=== PATIENT | male | born 1955 | race Caucasian/White ===

== ENCOUNTER 2016-07-10 08:43 | Observation (INO) | payer MEDICARE ==
--- NOTE | ~2016-07-10 | HP ---
History And Physical [place] [id number] [facility] [place]. [address] NAME: ABIOLA ELY : 57 STATUS : ADM Manisha PAT#: [id number] AGE: 60 ADM/REG DATE : 07/10/16 MR#: [id number] REPORT SERV DATE: 07/10/16 DICTATED BY: SIS HERNANDEZ DATE: 07/10/16 REPORT STATUS : Draft TRANSCRIBED BY: MODL DATE: 07/10/16 DATE OF ADMISSION: 07/10/2016 CHIEF COMPLAINT: Chest pain. HISTORY OF PRESENT ILLNESS: The patient is a 60-year-old male with known coronary artery disease with previous history of stents, myocardial infarction, ischemic cardiomyopathy, implantable defibrillator, and chronic atrial fibrillation. The patient reports that over the last six-days or a weeks, he has been having progressive dyspnea on exertion and chest pain. He reports pain which occurs with mild levels of exertion and is relieved with rest. He has associated diaphoresis, dyspnea, and nausea with his chest pain. As previously stated, it is reliably reproduced with exertion. He has had some intermittent resting chest pain as well. On the evening prior to admission, he had severe chest discomfort with diaphoresis, dyspnea, and nausea. This waxed and waned for several hours before reported in the emergency department. After treatment with nitrate and narcotic analgesics, he had repeat complete resolution of his chest pain and has had no recurrence since that time. PAST MEDICAL HISTORY: 1. Coronary artery disease with previous stents to LAD and left circumflex with acute myocardial infarction in 07/2012 secondary to stent thrombosis. 2. Chronic systolic congestive heart failure, ejection fraction 25% by echo in 12/2014. 3. Chronic atrial fibrillation. a. 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 b. Implantable defibrillator in situ. 4. Hypertension. 5. Diabetes mellitus. 6. Hyperlipidemia. 7. Obesity. 8. Obstructive sleep apnea. REVIEW OF SYSTEMS: Negative for all organ systems except per the history of present illness. SOCIAL HISTORY: The patient is currently undergoing divorce, from his , and currently lives alone. Denies tobacco use for the last seven to eight years. Prior to that time, smoking 35 years smoking, approximately one and a half packs of cigarettes per day. Denies illicit drug use. Reports one to two beers per day as his alcohol intake. He reports that he is medically disabled. FAMILY HISTORY: One brother with history of ablation for atrial fibrillation and previous coronary stents. ALLERGIES: ORENCIA (MALTOSE AND ABATACEPT, OR COMPONENTS OF ORENCIA) WITH ANAPHYLAXIS. MEDICATIONS: 1. Xanax 1 mg b.i.d., atorvastatin 80 mg at bedtime, azathioprine 50 mg b.i.d., Bumex 2 mg History And Physical [address] [address] NAME: ABIOLA ELY : 57 STATUS : ADM Manisha PAT#: [id number] AGE: 60 ADM/REG DATE : 07/10/16 MR#: [id number] REPORT SERV DATE: 07/10/16 DICTATED BY: SIS HERNANDEZ DATE: 07/10/16 REPORT STATUS : Draft TRANSCRIBED BY: MAURO DATE: 07/10/16 daily, carvedilol 12.5 mg b.i.d., citalopram 20 mg daily, Pradaxa 150 mg b.i.d. last dose the morning of 07/09/2016. 2. Digoxin 0.25 mg daily, hydroxychloroquine 400 mg daily, Levemir insulin 12 units subcu daily, losartan 25 mg daily, metolazone 2.5 mg daily, sublingual nitroglycerin 0.4 mg p.r.n., oxycodone/acetaminophen 10/325 mg one tablet q.4 hours p.r.n. pain, potassium chloride 20 mEq daily, prednisone 2 mg daily, spironolactone 25 mg daily. REVIEW OF SYSTEMS: Negative for all organ systems except per the history of present illness. PHYSICAL EXAMINATION: VITALS: Pulse 72 and regular, blood pressure ranging from 104/58 to 129/74, respirations 12 and unlabored, saturating 94% on 2 liters nasal cannula. GENERAL: Obese, middle-aged male, in no acute distress. HEENT: Normal. NECK: Supple, no JVD or bruit, normal carotid upstroke bilaterally, no thyromegaly. LUNGS: Faint crackles noted in the bases bilaterally. No wheezes, rales or rhonchi. No use of accessory muscles CARDIOVASCULAR: Irregularly regular rhythm, normal S1, S2, no thrill, no murmur, rubs or gallops, normal PMI. ABDOMEN: Bowel sounds positive, soft, nontender, and obese. No masses or aortic bruits. No hepatosplenomegaly or hepatojugular reflux. EXTREMITIES: No edema. Normal pulses. No clubbing or cyanosis. SKIN: Warm and dry, no significant rash. NEUROLOGIC: Alert and oriented x3. Appropriate mood. TELEMETRY: Atrial fibrillation with controlled ventricular rate. EKG: Sinus rhythm. Right bundle-branch block with evidence of previous anterior wall myocardial infarction. Left anterior fascicular block. Frequent PVCs versus paced beats. LABORATORY DATA: Sodium 139, potassium 3.2, chloride 98, BUN 13, creatinine 0.99, glomerular filtration rate 96 mL per minute, glucose 258, magnesium 1.8. WBC 8.9, hemoglobin 13.4, hematocrit 37.8, platelets 187,000. Troponin 0.03. Beta natriuretic peptide elevated 112. IMPRESSION: 1. Unstable angina, initial troponin marginally elevated. Abnormal baseline EKG. The patient's symptoms, he states they are quite similar to his previous myocardial infarction symptoms. The patient has been admitted for further observation and for treatment. He is currently anticoagulated. Serial cardiac enzymes have been ordered. We have recommended cardiac catheterization with intervention as indicated. There is no need for emergent catheterization at this time as the patient is asymptomatic. The risks, benefits, and alternatives of the procedure have been discussed with the patient. Complications including, but not limited to, , myocardial infarction, stroke, renal failure, life-threatening allergic reaction, life-threatening arrhythmia, life-threatening bleeding, and vascular or cardiac injury required emergent surgery have been discussed with the patient. The patient voices understanding of the History And Physical [address] [address] NAME: ABIOLA ELY : 57 STATUS : ADM Manisha PAT#: [id number] AGE: 60 ADM/REG DATE : 07/10/16 MR#: [id number] REPORT SERV DATE: 07/10/16 DICTATED BY: SIS HERNANDEZ DATE: 07/10/16 REPORT STATUS : Draft TRANSCRIBED BY: MODBrendon DATE: 07/10/16 potential risks and desires to proceed. 2. Chronic systolic congestive heart failure, ischemic cardiomyopathy, moderate dyspnea. Mildly elevated beta-natriuretic peptide, however, morbidly obese patient. This may be falsely depressed related to the same. In no respiratory distress at this time and no evidence of significant volume overload. We will continue current cardiac medications. 3. Diabetes mellitus, sliding scale insulin. 4. Permanent atrial fibrillation, rate controlled on current medication. 5. Chronic anticoagulation, Pradaxa has been discontinued and we will continue to be held at this time. PLAN: Plan for cardiac catheterization in the a.. CSL/MODL Yasir Hernandez M.D. / [id number] CC: Cristi Brian M.D.
[~2016-07-10 08:43] MED LIST: ASAB PO; ATEN25 PO; ATEN50 PO; BUM2 PO; C5 PO; CELEXA20 PO; COREG25 PO; COZ25 PO; CRESTOR10 PO; DIGITEK0.25 MG PO; DILT-XR120 MG PO; DSS PO; ENDOCET1 TA3 PO; HUMULIN R1 ML SC; IMU PO; INSPRA25 PO; JANTOVEN5 MG PO; JANUVIA100 MG PO; KLOR-CON M2020 MEQ PO; L20 PO; LAN25 PO; LEVEMFLXPN SC; LEVEMIR SC; LIPITOR80 MG PO; LORTAB10 PO; MSCONT15 PO; NEUR100 PO; NITROSTAT0.4 MG SL; NORCO1 TA1 PO; NOVOLOG SC; NOVOLOGMIX SC; P10 PO; P5 PO; PLAQ200B PO; PLAVIX PO; PRADAXA150 MG PO; PRIN10 PO; PRIN2.5 PO; PRIN5 PO; VIAGRA50 MG PO; X5 PO; XANAX1 MG PO; ZESTRIL2.5 MG PO
[2016-07-10 09:55] LABS: BASOPHILS 0.8 %; BASOPHILS ABSOLUTE 0.07 10/3/uL (0.0-0.16); EOSINOPHILS 3.2 %; EOSINOPHILS ABSOLUTE 0.28 10/3/uL (0.0-0.53); ER CBC TAT 0 Hrs 07 Mins; HEMOGLOBIN 13.4 g/dL (13.6-17.8); IMMATURE GRANULOCYTES 0.2 %; IMMATURE GRANULOCYTES ABSOLUTE 0.02 10/3/uL (0.0-0.11); LYMPHOCYTES 14.5 %; LYMPHOCYTES ABSOLUTE 1.28 10/3/uL (0.67-4.30); MEAN CORPUSCULAR HEMOGLOB 33.3 pg (26.0-34.0); MEAN PLATELET VOLUME 9.9 fL (9.2-13.0); MONOCYTES 6.1 %; MONOCYTES ABSOLUTE 0.54 10/3/uL (0.21-1.20); NEUTROPHILS 75.2 %; NEUTROPHILS ABSOLUTE 6.66 10/3/uL (2.02-8.40); PLATELET COUNT 187 10/3/uL (150-400); RBC DISTRIBUTION WIDTH 13.9 % (12.0-16.0); RED CELL COUNT 4.02 10/6/uL (4.7-6.1); WHITE BLOOD CELLS 8.9 10/3/uL (4.5-10.5)
[2016-07-10 09:58] LABS: HEMATOCRIT 37.8 % (40.0-51.0); MANUAL DIFF NO %; MEAN CORPUS HGB CONC 35.4 g/dL (32.0-36.0)
[2016-07-10 10:02] LABS: INTERNATIONAL NORMAL RATI 1.3 UNITS (-)
[2016-07-10 10:03] LABS: PARTIAL THROMBO TIME 36.5 SEC (22.5-37.2); PROTIME (NOT ORD) 16.3 SEC (12.0-14.5)
[2016-07-10 10:11] LABS: BUN (BLOOD UREA NITROGEN) 13 MG/DL (6-23); CALCIUM, SERUM 8.4 MG/DL (8.5-10.4); CHEST PAIN PROFILE TAT 0 Hrs 23 Mins; CHLORIDE, SERUM 98 MMOL/L (96-112); CREATININE 0.99 MG/DL (0.70-1.30); GFR AFRICAN AMERICAN 96 ML/MIN (>=60); GFR NON AFRICAN AMERICAN 83 ML/MIN (>=60); POTASSIUM, SERUM 3.2 MMOL/L (3.5-5.3); SODIUM, SERUM 139 MMOL/L (135-148); TROPONIN I 0.03 NG/ML (<0.05)
[2016-07-10 10:12] LABS: CO2 (CARBON DIOXIDE) 33 MMOL/L (24-34); GLUCOSE, SERUM 258 MG/DL (60-99)
[2016-07-10] MEDS ORDERED: COREG12 PO (10:35)
[2016-07-10] MEDS ORDERED: LIPITOR80 MG PO (10:36)
[2016-07-10] MEDS ORDERED: KLOR-CON M2020 MEQ PO (10:36)
[2016-07-10] MEDS ORDERED: LAN25 PO (10:36)
[2016-07-10] MEDS ORDERED: XANAX1 MG PO (10:37)
[2016-07-10] MEDS ORDERED: BUM2 PO (10:37)
[2016-07-10] MEDS ORDERED: CELEXA20 PO (10:37)
[2016-07-10] MEDS ORDERED: PRADAXA150 MG PO (10:38)
[2016-07-10] MEDS ORDERED: NITROSTAT0.4 MG SL (10:38)
[2016-07-10] MEDS ORDERED: LEVEMIR SC (10:41)
[2016-07-10] MEDS ORDERED: ENDOCET1 TA3 PO (10:42)
[2016-07-10] MEDS ORDERED: IMU PO (10:42)
[2016-07-10] MEDS ORDERED: COZ25 PO (10:43)
[2016-07-10] MEDS ORDERED: PLAQ200B PO (10:43)
[2016-07-10] MEDS ORDERED: P1 PO (10:43)
[2016-07-10] MEDS ORDERED: ZAROX2.5B PO (10:44)
[2016-07-10] MEDS ORDERED: SPIRO25 PO (10:44)
[2016-07-10 19:23] LABS: TROPONIN I 0.03 NG/ML (<0.05)
[2016-07-10 21:51] LABS: POTASSIUM, SERUM 3.5 MMOL/L (3.5-5.3)
[2016-07-11 05:58] LABS: INTERNATIONAL NORMAL RATI 1.2 UNITS (-); PROTIME (NOT ORD) 14.6 SEC (12.0-14.5)
[2016-07-11 06:00] LABS: BASOPHILS 0.8 %; BASOPHILS ABSOLUTE 0.07 10/3/uL (0.0-0.16); EOSINOPHILS 3.5 %; EOSINOPHILS ABSOLUTE 0.32 10/3/uL (0.0-0.53); HEMATOCRIT 38.3 % (40.0-51.0); HEMOGLOBIN 13.2 g/dL (13.6-17.8); IMMATURE GRANULOCYTES 0.2 %; IMMATURE GRANULOCYTES ABSOLUTE 0.02 10/3/uL (0.0-0.11); LYMPHOCYTES 21.9 %; LYMPHOCYTES ABSOLUTE 2.02 10/3/uL (0.67-4.30); MANUAL DIFF NO %; MEAN CORPUS HGB CONC 34.5 g/dL (32.0-36.0); MEAN CORPUSCULAR HEMOGLOB 32.4 pg (26.0-34.0); MEAN CORPUSCULAR VOLUME 94.1 fL (80-100); MONOCYTES 7.4 %; MONOCYTES ABSOLUTE 0.68 10/3/uL (0.21-1.20); NEUTROPHILS 66.2 %; PLATELET COUNT 200 10/3/uL (150-400); RED CELL COUNT 4.07 10/6/uL (4.7-6.1); WHITE BLOOD CELLS 9.2 10/3/uL (4.5-10.5)
[2016-07-11 06:15] LABS: BUN (BLOOD UREA NITROGEN) 16 MG/DL (6-23); CHLORIDE, SERUM 100 MMOL/L (96-112); CHOLESTEROL 121 MG/DL (< 200); CO2 (CARBON DIOXIDE) 32 MMOL/L (24-34); CREATININE 0.91 MG/DL (0.70-1.30); GFR AFRICAN AMERICAN 107 ML/MIN (>=60); GFR NON AFRICAN AMERICAN 92 ML/MIN (>=60); HDL CHOLESTEROL 41 MG/DL (> 39); LDL CHOLESTEROL 59 MG/DL (< 130); NON-HDL CHOLESTEROL 80 MG/DL (< 160); POTASSIUM, SERUM 3.5 MMOL/L (3.5-5.3); SGPT(ALT) 32 U/L (5-65); SODIUM, SERUM 138 MMOL/L (135-148); TRIGLYCERIDE 108 MG/DL (< 150)
[2016-07-11 06:16] LABS: GLUCOSE, SERUM 168 MG/DL (60-99)
== END 2016-07-11 21:40 | disposition home or self-care (01) ==
LOC: ER 08:43 → CDU1 12:45 → CDU2 13:11
PROVIDERS: Emergency Medicine; Internal Medicine Cardiovascular Disease
PROC: 4A023N8 Measurement of Cardiac Sampling and Pressure, Bilateral, Percutaneous Approach (ICD-10-PCS; principal; 2016-07-10)
DX: I25.110 Atherosclerotic heart disease of native coronary artery with unstable angina pectoris (principal); I25.2 Old myocardial infarction; I25.5 Ischemic cardiomyopathy; I48.91 Unspecified atrial fibrillation; I50.22 Chronic systolic (congestive) heart failure; I11.0 Hypertensive heart disease with heart failure; E11.9 Type 2 diabetes mellitus without complications; E78.5 Hyperlipidemia, unspecified; G47.33 Obstructive sleep apnea (adult) (pediatric); F17.210 Nicotine dependence, cigarettes, uncomplicated; Z88.8 Allergy status to other drugs, medicaments and biological substances; Z79.01 Long term (current) use of anticoagulants
CPT/HCPCS: 71010; 80048; 80061; 80162; 82962; 83735; 83880; 84132; 84460; 84484; 85025; 85610; 85730; 93005; 93458; 99152; 99285; A9270-GY; C1769; C1887; C1894; G0378; J2250; J3010; J7500; Q9967